=== PATIENT | female | born 1985 | race Caucasian/White ===

== ENCOUNTER 2020-10-08 16:35 | Inpatient (IN) | payer OTHER, SELFPAY ==
--- NOTE | 2020-10-08 | ECG_ITS ---
Test Reason : COUGH Blood Pressure : / mmHG Vent. Rate : 098 BPM Atrial Rate : 098 BPM P-R Int : 142 ms QRS Dur : 066 ms QT Int : 418 ms P-R-T Axes : 081 080 030 degrees QTc Int : 533 ms Normal sinus rhythm Biatrial enlargement Septal infarct , age undetermined ST & T wave abnormality, consider inferior ischemia ST & T wave abnormality, consider anterolateral ischemia Prolonged QT Abnormal ECG No previous ECGs available Referred By: Generic ED Physician Electronically Signed By:CARTER EDMONDS
--- NOTE | ~2020-10-08 | XR_ITS ---
EXAMINATION: XR CHEST CLINICAL INFORMATION: Shortness of breath COMPARISON: None TECHNIQUE: Frontal view of the chest was obtained. FINDINGS: The cardiomediastinal silhouette is normal. There is left lower lobe atelectasis/volume loss. No pleural effusions. XR/XR chest 1V IMPRESSION: Left lower lobe atelectasis.
--- NOTE | ~2020-10-08 | CT_ITS ---
EXAMINATION: CT CHEST WITHOUT CONTRAST CLINICAL INFORMATION: Rule out pneumonia. Hypoxia COMPARISON: Chest x-ray earlier the same day TECHNIQUE: Multidetector volumetric CT imaging of the chest was done. Axial MIP volume rendering provided. Sagittal and coronal reformatted images were obtained. This CT examination was performed using dose optimization techniques as appropriate, variously including the following: *Automated exposure control *Adjustment of mA and/or kV according to patient size (this includes techniques or standardized protocols for targeted exams where dose is matched to indication/reason for exam; i.e. extremities or head) *Use of iterative reconstruction technique DLP: 158 mGy-cm FINDINGS: DRILL FOREMAN: As noted on the earlier chest x-ray, there is left lower lobe consolidation with air bronchograms and volume loss. LUNGS: There is left lower lobe consolidation with air bronchograms and volume loss. The left upper lobe is clear. Right lung is clear. MEDIASTINUM: The mediastinum is normal. PLEURA: There is no pleural effusion. No pleural mass or thickening. AXILLA: No lymphadenopathy. UPPER ABDOMEN: No adrenal mass. OSSEOUS STRUCTURES: Unremarkable. CT/CT chest wo con IMPRESSION: Left lower lobe consolidation with air bronchograms and volume loss. This could represent atelectasis, aspiration, or pneumonia.
[2020-10-08 16:57] VITALS: BP 145/92; PULSE 94; RESP 16; TEMP 36.1; O2SAT 91; BMI 23.6
--- NOTE | 2020-10-08 17:04 | PC.NURSE ---
Patient placed on 2L NC
--- NOTE | 2020-10-08 17:37 | PC.NURSE ---
pt alert and oriented, skin pwd, respirations even and unlabored, pt on 2l and sating at 94%, ls diminished on the right, very hard to hear breath sounds on the right lower lobes. pt does report feeling sob and chest pain about 8/10
[2020-10-08 17:40] VITALS: PULSE 78; RESP 20; O2SAT 94
--- NOTE | 2020-10-08 17:49 | ED_ITS ---
HPI - Chest Pain General Chief Complaint: Chest Pain Stated Complaint: cough, cp Time Seen by Provider: 10/08/20 17:38 Source: patient Mode of arrival: ambulatory Limitations: no limitations History of Present Illness HPI narrative: 35-year-old female previously healthy here with complaints of productive cough since Tuesday. Went to urgent care yesterday. Diagnosed with pneumonia. Started on azithromycin, prednisone and albuterol MDI. Today feels short of breath with chest tightness. No fevers or chills. No leg swelling or pain. Patient received moderna vaccine x2 in July. She does work in a healthcare facility as a [email or web address] Related Data Home Medications Medication Instructions Recorded Confirmed azithromycin 250 mg tablet 1 tab PO DAILY 10/08/20 10/08/20 benzonatate 100 mg capsule 1 cap PO TID PRN 10/08/20 10/08/20 prednisone 50 mg tablet 1 tab PO DAILY 10/08/20 10/08/20 Allergies Allergy/AdvReac Type Severity Reaction Status Date / Time No Known Allergies Allergy Verified 10/08/20 17:48 Review of Systems Review of Systems: Yes all other systems are reviewed and are negative Constitutional: Constitutional: Reports no additional constitutional complaints, Denies body ache(s), Denies chills, Denies fever(s), Denies headache(s) and Denies weakness Eyes: Eyes: Reports no additional eye complaints and Denies change in vision ENT: Reports system reviewed and no additional complaints, except as documented, Denies dizziness, Denies headache(s), Denies nasal congestion, Mg es nasal discharge and Denies neck pain Cardiovascular: Cardiovascular: Reports no additional cardiovascular complaints, Reports chest pain, Denies leg edema and Reports dyspnea Respiratory: Respiratory: Reports no additional respiratory complaints, Reports cough and Reports dyspnea Gastrointestinal: Gastrointestinal: Reports no additional gastrointestinal complaints, Denies abdominal pain, Denies diarrhea, Denies nausea and Denies vo miting Genitourinary: Genitourinary: Reports no additional female genitourinary complaints and Denies urinary incontinence Musculoskeletal: Musculoskeletal: Reports no additional musculoskeletal complaints, Denies back pain, Denies arthralgias, Denies joint swelling, Denies neck pain, Denies numbness and Denies tingling Integumentary/Breasts: Skin/Breast: Reports system reviewed and no additional complaints, except as docu and Denies rash Neurologic: Reports system reviewed and no additional complaints, except as documented, Denies Abnormal speech present, Denies dizziness, Denies headache(s), Denies numbness, Denies tingling and Denies weakness PMFSH Past Medical History Attestation statement: The following information was validated with the patient. Source: old records reviewed and nursing notes reviewed Social History Social History Advance Directives: No Advance Directives Information Provided: No Physical Exam Vital Signs: Vital Signs: Last Vital Signs Temp 98.5 F 10/08/20 20:14 Pulse 74 10/08/20 20:14 Resp 19 10/08/20 20:14 BP 140/88 H 10/08/20 20:14 Pulse Ox 98 10/08/20 20:14 Body Mass Index 23.6 91% RA Const: General: cooperative, healthy appearing, comfortable and no acute distress Orientation/consciousness: patient oriented x3 Limitations: no limitations HENMT: Head: Yes normal to inspection Ears: hearing grossly normal bila terally General nose exam: Normal external nose present Face and sinus: Yes normal facial exam Mouth: Normal oral and palatal mucosa present Throat: Yes posterior oropharynx normal Eyes: General: appearance normal, both eyes and all related structures Pupils: Equal, round and reactive pupils present Neck: Neck: Yes normal visual inspection Chest: Chest palpation & inspection: normal inspection of the chest Resp: Other: Coarse breath sounds bilaterally Effort & Inspection: normal respiratory effort Cardio: Rate: regular rate Rhythm: regular rhythm Peripheral pulses: Peripheral pulses 2+ throughout GI: Inspection: Yes normal to inspection Palpation (GI): Soft to palpation and nontender Auscultation: normal bowel sounds Back/Spine/Pelvis: Thoracic/Lumbar Spine: thoracic and lumbar spine normal to inspection Skin: General skin exam: no rashes or lesions noted Neuro: General: patient oriented x3, no focal motor deficits and normal sensation to monofilament Cranial nerves: Yes Equal, round and reactive pupils present Cognition (Neuro): normal cognition Speech: No Abnormal speech present Gait exam (Neuro): Normal gait present Motor exam (neuro): 5/5 motor strength present throughout Extrem: General: Yes normal to inspection, Yes no pedal edema and Yes no calf tenderness Course Course Course Narrative: 35-year-old female here with complaints of cough for several days now with chest pain and shortness of breath today. Started antibiotic and prednisone yesterday for presumed pneumonia after being seen in urgent care. Now feels more short of breath with chest tightness. On arrival room air saturation 91%. Improved on 2 L to 94%. Coarse breath sounds throughout. Will check chest x-ray, EKG, labs, COVID screen. 1899-COVID screen negative. Labs show mild leukocytosis but no shift and otherwise are unremarkable. EKG shows no ischemic changes. Chest x-ray shows some left lower lobe atelectasis but no clear pneumonia. D-dimer negative. Patient will need a CT of the chest to rule out underlying PNA. 1953-CT chest consistent with left lower lobe pneumonia. Will perform ambulatory oxygen saturation for disposition. 2014-unfortunately the patient desaturated to 86% while ambulating and she was quite tachypneic. At this time infection is suspected. Blood cultures and lactic acid ordered. Antibiotics ordered. Discussed with Dr. Arriaga who accepted admission of patient. MDM - Chest Pain MDM Narrative Medical decision making narrative: Pneumonia, PE Medical Records Data Attestation: I reviewed the patient's medical records. Lab Data Attestation: I reviewed the patient's lab results. Result diagrams: 10/08/20 18:10 10/08/20 18:10 Labs: Lab Results 10/08/20 10/08/20 10/08/20 Range/Units 17:55 18:10 18:10 WBC 14.0 H (4.8-10.8) X10*3/uL RBC 5.04 (4.20-5.50) X10*6/uL Hgb 16.5 H (12.0-16.0) g/dl Hct 46.9 (37-47) % MCV 93.1 (80-98) fL MCH 32.7 (27.0-33.0) pg MCHC 35.2 H (31.0-35.0) g/dl RDW 12.2 (11.0-16.0) % Plt Count 234 (160-400) X10*3/uL MPV 11.0 (9.4-12.3) fL Immature Gran % (Auto) 0.4 (0.0-0.4) % Neut % (Auto) 86.4 H (45-73) % Lymph % (Auto) 9.1 L (20-40) % [place] % (Auto) 3.8 (2-11) % Eos % (Auto) 0.0 (0-4) % Baso % (Auto) 0.3 (0-2) % Lymph # (Auto) 1.3 (1.2-4.9) X10*3/uL [place] # (Auto) 0.5 (0.1-1.2) X10*3/uL Eos # (Auto) 0.0 (0.0-0.4) X10*3/uL Baso # (Auto) 0.0 (0.0-0.2) X10*3/uL Abs Immat Gran (auto) 0.05 H (0.00-0.03) X10*3/uL Absolute Neuts (auto) 12.1 H (2.0-8.3) X10*3/uL Absolute Nucleated RBC 0.000 (0.0-0.012) X10*3/uL Nucleated RBC % (auto) 0.0 (0.0-0.2) /100WBC PT (9.9-13.0) SEC INR (0.9-1.1) D-Dimer NG/ML Sodium 142 (135-145) mmol/L Potassium 4.1 (3.3-5.1) mmol/L Chloride 106 (96-108) mmol/L Carbon Dioxide 26 (22-29) mmol/L Anion Gap 14 (12-20) BUN 9 (9-16) mg/dL Creatinine 0.72 (0.5-1.4) mg/dL Estim Creat Clear Calc 82.3 Estimated GFR > 60 Random Glucose 157 H (60-115) mg/dL Calcium 10.4 H (8.4-10.2) mg/dL Total Bilirubin 0.5 (0.0-1.0) mg/dL Direct Bilirubin 0.2 (0.0-0.5) mg/dL AST 13 (5-31) U/L ALT 18 (0-31) U/L Alkaline Phosphatase 89 (39-117) U/L Total Protein 8.6 H (6.5-8.0) g/dL Albumin 4.6 (3.5-5.0) g/dL COVID-19 (LOU) Negative (Negative) COVID-19 Clin Com See Note 10/08/20 Range/Units 18:10 WBC (4.8-10.8) X10*3/uL RBC (4.20-5.50) X10*6/uL Hgb (12.0-16.0) g/dl Hct (37-47) % MCV (80-98) fL MCH (27.0-33.0) pg MCHC (31.0-35.0) g/dl RDW (11.0-16.0) % Plt Count (160-400) X10*3/uL MPV (9.4-12.3) fL Immature Gran % (Auto) (0.0-0.4) % Neut % (Auto) (45-73) % Lymph % (Auto) (20-40) % [place] % (Auto) (2-11) % Eos % (Auto) (0-4) % Baso % (Auto) (0-2) % Lymph # (Auto) (1.2-4.9) X10*3/uL [place] # (Auto) (0.1-1.2) X10*3/uL Eos # (Auto) (0.0-0.4) X10*3/uL Baso # (Auto) (0.0-0.2) X10*3/uL Abs Immat Gran (auto) (0.00-0.03) X10*3/uL Absolute Neuts (auto) (2.0-8.3) X10*3/uL Absolute Nucleated RBC (0.0-0.012) X10*3/uL Nucleated RBC % (auto) (0.0-0.2) /100WBC PT 11.8 (9.9-13.0) SEC INR 1.0 (0.9-1.1) D-Dimer < 200 NG/ML Sodium (135-145) mmol/L Potassium (3.3-5.1) mmol/L Chloride (96-108) mmol/L Carbon Dioxide (22-29) mmol/L Anion Gap (12-20) BUN (9-16) mg/dL Creatinine (0.5-1.4) mg/dL Estim Creat Clear Calc Estimated GFR Random Glucose (60-115) mg/dL Calcium (8.4-10.2) mg/dL Total Bilirubin (0.0-1.0) mg/dL Direct Bilirubin (0.0-0.5) mg/dL AST (5-31) U/L ALT (0-31) U/L Alkaline Phosphatase (39-117) U/L Total Protein (6.5-8.0) g/dL Albumin (3.5-5.0) g/dL COVID-19 (LOU) (Negative) COVID-19 Clin Com Imaging Data Chest x-ray: Attestation: I personally reviewed and interpreted this imaging study as follows: Radiologist's impression: EXAMINATION: XR CHEST CLINICAL INFORMATION: Shortness of breath COMPARISON: None TECHNIQUE: Frontal view of the chest was obtained. FINDINGS: The cardiomediastinal silhouette is normal. There is left lower lobe atelectasis/volume loss. No pleural effusions. XR/XR chest 1V IMPRESSION: Left lower lobe atelectasis. ? CT scan - chest: Attestation: I personally reviewed and interpreted this imaging study as follows: Radiologist's impression: [place] [id number] CT Scan Report Signed Patient: Angie Guy MR#: [id number] : 1985 Acct:[id number] Age/Sex: 35 / F ADM Date: 10/08/20 Loc: .ED Attending Dr: Ordering Physician: Deepika Lee NP Date of Service: 10/08/20 Procedure(s): CT chest con Accession Number(s): [id number] cc: Deepika Lee NP~ EXAMINATION: CT CHEST WITHOUT CONTRAST CLINICAL INFORMATION: Rule out pneumonia. Hypoxia? COMPARISON: Chest x-ray earlier the same day? TECHNIQUE: Multidetector volumetric CT imaging of the chest was done. Axial MIP volume rendering provided. Sagittal and coronal reformatted images were obtained.? This CT examination was performed using dose optimization techniques as appropriate, variously including the following: *Automated exposure control *Adjustment of mA and/or kV according to patient size (this includes techniques or standardized protocols for targeted exams where dose is matched to indication/reason for exam; i.e. extremities or head) *Use of iterative reconstruction technique DLP: 158 mGy-cm FINDINGS: PERCUSSION INSTRUCTOR: As noted on the earlier chest x-ray, there is left lower lobe consolidation with air bronchograms and volume loss. LUNGS: There is left lower lobe consolidation with air bronchograms and volume loss. The left upper lobe is clear. Right lung is clear.? MEDIASTINUM: The mediastinum is normal.? PLEURA: There is no pleural effusion. No pleural mass or thickening.? AXILLA: No lymphadenopathy.? UPPER ABDOMEN: No adrenal mass.? OSSEOUS STRUCTURES: Unremarkable.? CT/CT chest wo con IMPRESSION: Left lower lobe consolidation with air bronchograms and volume loss. This could represent atelectasis, aspiration, or pneumonia. ? ECG Data ECG #1: Attestation: I personally reviewed and interpreted this ECG as follows: ECG interpretation date: 10/08/20 ECG interpretation time: 16:49 Interpretation: Normal sinus rhythm with a rate of 98, normal NV, normal QRS, QTC [address] changes Discharge Plan Discharge Clinical Impression: Pneumonia, Hypoxia Patient Disposition: Admitted As Inpatient
[2020-10-08 18:17] LABS: MANUAL DIFF FLAG NO
[2020-10-08 18:18] LABS: COVID-19 Test Negative (Negative)
[2020-10-08 18:19] LABS: Basophils Percent Auto 0.3 % (0-2); Hematocrit 46.9 % (37-47); Hemoglobin 16.5 g/dl (12.0-16.0); Imm Gran Abs Auto 0.05 X10*3/uL (0.00-0.03); Imm Gran Pct Auto 0.4 % (0.0-0.4); Lymphocytes Absolute Auto 1.3 X10*3/uL (1.2-4.9); Lymphocytes Percent Auto 9.1 % (20-40); Mean Corpuscular HGB Conc 35.2 g/dl (31.0-35.0); Mean Corpuscular Hemoglobin 32.7 pg (27.0-33.0); Mean Corpuscular Volume 93.1 fL (80-98); Monocytes Absolute Auto 0.5 X10*3/uL (0.1-1.2); Monocytes Percent Auto 3.8 % (2-11); Neutrophils Absolute Auto 12.1 X10*3/uL (2.0-8.3); Neutrophils Percent Auto 86.4 % (45-73); Platelet Count 234 X10*3/uL (160-400); Red Blood Count 5.04 X10*6/uL (4.20-5.50); Red Cell Distribution Width 12.2 % (11.0-16.0)
[2020-10-08 18:25] LABS: Prothrombin Time 11.8 SEC (9.9-13.0)
[2020-10-08 18:33] VITALS: O2SAT 96
[2020-10-08 18:36] LABS: Alanine Aminotransferase 18 U/L (0-31); Albumin Level 4.6 g/dL (3.5-5.0); Alkaline Phosphatase 89 U/L (39-117); Anion Gap 14 (12-20); Aspartate Amino Transferase 13 U/L (5-31); Bilirubin Direct 0.2 mg/dL (0.0-0.5); Bilirubin Total 0.5 mg/dL (0.0-1.0); Blood Urea Nitrogen 9 mg/dL (9-16); Calcium 10.4 mg/dL (8.4-10.2); Carbon Dioxide 26 mmol/L (22-29); Chloride 106 mmol/L (96-108); Creatinine Clr Calc Pharmacy 82.3; Estimated Glomerular Filt Rate > 60; Glucose Random 157 mg/dL (60-115); Potassium 4.1 mmol/L (3.3-5.1); Sodium 142 mmol/L (135-145); Total Protein 8.6 g/dL (6.5-8.0)
[2020-10-08 19:07] LABS: D Dimer < 200 NG/ML
[2020-10-08 20:14] VITALS: BP 140/88; PULSE 74; RESP 19; TEMP 36.9; O2SAT 98
--- NOTE | 2020-10-08 20:22 | PHA.MEDREC ---
Pharmacy Consult ? Medication Reconciliation Pharmacy has completed the medication reconciliation. Spoke with patient in ED.
--- NOTE | 2020-10-08 20:41 | PM.IMHP ---
History of Present Illness Date of Service: 10/08/20 Chief Complaint: Shortness of breath and cough 35-year-old female with a past medical history of tobacco dependence presented to the hospital with a chief complaint of cough and shortness of breath over the past 3-4 days. Patient mentions that she also has sputum production; subjective fevers. Complains of posttussive chest discomfort. Denies any nausea vomiting diarrhea. Denies any recent travel sick contacts. Patient reports that she did receive COVID-19 vaccination. Denies any numbness tingling or focal weakness. Denies any urinary symptoms. Review of all other systems is negative except mentioned above ER course: Per ER team patient reported that she went to the urgent care and was given azithromycin and prednisone; but her symptoms continued to worsen hence presented to the ER for evaluation. Noted to have coarse breath sounds and the chest x-ray showed possible atelectasis; D-dimer was negative patient was noted to be hypoxic to 86% on room air; placed on 2 L of nasal cannula improved to 94 95%. Not in respiratory distress. Is CT chest showed left lower lobe pneumonia. Given antibiotics. Admitted to the hospital for further management PMFSH Social History Advance Directives: No Advance Directives Information Provided: No Meds Allergies Allergy/AdvReac Type Severity Reaction Status Date / Time No Known Allergies Allergy Verified 10/08/20 17:48 Active Medications: Current Medications Generic Name Dose Route Start Last Admin Trade Name Freq PRN Reason Stop Dose Admin Acetaminophen 650 mg 10/08/20 20:14 Acetaminophen 325 Mg Tablet PO Q6H PRN Pain, Mild (Pain Scale 1-3) Albuterol/Ipratropium 3 ml 10/08/20 20:39 Albuterol/Iprat 2.5/0.5mg 3 Ml Ampul.Neb INHALE RQ4H PRN Shortness of Breath/Wheezing Benzonatate 100 mg 10/08/20 20:39 Benzonatate 100 Mg Capsule PO TID PRN Cough Azithromycin 500 mg/ Sodium 250 mls @ 125 mls/hr 10/08/20 20:01 Chloride IV 10/08/20 22:00 ONCE ONE Ceftriaxone Sodium 1 gm/ 50 mls @ 100 mls/hr 10/09/20 21:00 Sodium Chloride IV Q24H JAYESH Azithromycin 500 mg/ Sodium 250 mls @ 125 mls/hr 10/09/20 22:00 Chloride IV Q24H JAYESH Dextrose/Sodium Chloride 1,000 mls @ 100 mls/hr 10/08/20 20:15 D5ns IVCONT .Q10H [facility] Magnesium Hydroxide 30 ml 10/08/20 20:14 Milk Of Magnesia 30 Ml Oral.Susp PO DAILY PRN Constipation Melatonin 6 mg 10/08/20 20:14 Melatonin 3 Mg Tablet PO BEDTIME PRN Insomnia Pharmacy Consult 1 each 10/08/20 20:01 Consult Rx Perform Med Rec MISCELLANE ONCE PRN Consult order Sodium Chloride 3 ml 10/09/20 00:00 0.9 % Sodium Chloride Flush 3 Ml Syringe IVFLUSH QSHIFT [facility] Home Medications Medication Instructions Recorded Confirmed Last Taken Type azithromycin 250 mg tablet 1 tab PO DAILY 10/08/20 10/08/20 10/07/20 History benzonatate 100 mg capsule 1 cap PO TID PRN 10/08/20 10/08/20 10/08/20 History prednisone 50 mg tablet 1 tab PO DAILY 10/08/20 10/08/20 10/08/20 History Physical Exam Vital Signs and Narrative: Vital Signs: Last Vital Signs Temp 97 F 10/08/20 16:57 Pulse 78 10/08/20 17:40 Resp 20 10/08/20 17:40 BP 145/92 H 10/08/20 16:57 Pulse Ox 96 10/08/20 18:33 Body Mass Index 23.6 Gen: Appears be in no acute distress HEENT: NCAT, Moist mucosa. Pulmonary: Course breath sounds, fair air entry CVS: Normal S1-S2 Abdomen: BS+, Soft, Nontender Extremities: Warm well perfused Neuro: Alert and awake. Results Labs CBC and Chem 7: 10/08/20 18:10 10/08/20 18:10 Labs: Laboratory Results - last 24 hr 10/08/20 10/08/20 10/08/20 17:55 18:10 18:10 MCV 93.1 MCH 32.7 MCHC 35.2 H RDW 12.2 Plt Count 234 MPV 11.0 Immature Gran % (Auto) 0.4 Neut % (Auto) 86.4 H Lymph % (Auto) 9.1 L [place] % (Auto) 3.8 Eos % (Auto) 0.0 Baso % (Auto) 0.3 Lymph # (Auto) 1.3 [place] # (Auto) 0.5 Eos # (Auto) 0.0 Baso # (Auto) 0.0 Abs Immat Gran (auto) 0.05 H Absolute Neuts (auto) 12.1 H Absolute Nucleated RBC 0.000 Nucleated RBC % (auto) 0.0 PT INR D-Dimer Anion Gap 14 Estim Creat Clear Calc 82.3 Estimated GFR > 60 Random Glucose 157 H Calcium 10.4 H Total Bilirubin 0.5 Direct Bilirubin 0.2 AST 13 ALT 18 Alkaline Phosphatase 89 Total Protein 8.6 H Albumin 4.6 COVID-19 (LOU) Negative COVID-19 Clin Com See Note 10/08/20 18:10 MCV MCH MCHC RDW Plt Count MPV Immature Gran % (Auto) Neut % (Auto) Lymph % (Auto) [place] % (Auto) Eos % (Auto) Baso % (Auto) Lymph # (Auto) [place] # (Auto) Eos # (Auto) Baso # (Auto) Abs Immat Gran (auto) Absolute Neuts (auto) Absolute Nucleated RBC Nucleated RBC % (auto) PT 11.8 INR 1.0 D-Dimer < 200 Anion Gap Estim Creat Clear Calc Estimated GFR Random Glucose Calcium Total Bilirubin Direct Bilirubin AST ALT Alkaline Phosphatase Total Protein Albumin COVID-19 (LOU) COVID-19 Clin Com Imaging Radiologist's Impressions: Impressions Chest X-Ray 10/08/20 17:48 IMPRESSION: Left lower lobe atelectasis. Chest CT 10/08/20 19:11 IMPRESSION: Left lower lobe consolidation with air bronchograms and volume loss. This could represent atelectasis, aspiration, or pneumonia. Assessment and Plan (1) Pneumonia: Status: Acute (2) Hypoxia: Status: Acute 35-year-old female with a past medical history of tobacco dependence presented to the hospital with a chief complaint of cough, shortness of breath, sputum production; noted to have pneumonia. Admitted for further management. left lower lobe pneumonia: Continue ceftriaxone azithromycin. Follow up cultures. Hypoxia: Likely in the setting of pneumonia. Coarse breath sounds. DuoNebs p.r.n.. Supplemental oxygen p.r.n.. D-dimer negative. Tobacco dependence: Counseled on smoking cessation. DVT prophylaxis: SCD boots Code status: Full code Quality Stroke Does the patient have a stroke diagnosis?: No VTE Prior VTE?: No VTE Risk Level:: Medical - moderate - high VTE Device Contraindication: N/A - Device Ordered VTE Drug Contraindication: Treatment Not Indicated
--- NOTE | 2020-10-08 21:05 | PC.NURSE ---
iv inserted, labs drawn
[2020-10-08] MEDS: cefTRIAXone sodium 1 GM in 0.9 % Sodium Chloride 50 ML IV (21:12)
[2020-10-08] MEDS: Acetaminophen 325 MG TABLET 650 MG PO (21:34)
[2020-10-08] MEDS: Azithromycin 500 MG in 0.9 % Sodium Chloride 250 ML 125 MG IV (21:38)
--- NOTE | 2020-10-08 21:47 | PC.NURSE ---
report called to the floor
--- NOTE | 2020-10-08 21:56 | MHC.CM.PN ---
CM met with admitted patient, bed assigned 359. No covid vaccine. Covid negative. No PCP. Given contact sheet for [facility] primary care. Encouraged pt to make an appointment to F/U after discharge. Pt smoker. Encouraged to use this time in hospital to quit. Enc. pt to ask for nicotine patch, as it may help. Pt lives with Atiya Sandoval ([phone]). Has 13 year old son. Uses no DME and has no services. Provided HCP education, but pt refused at this time. Pt aware that she will meet with CM tomorrow and can consider completing HCP while hospitalized. D/C plan is home without services. Transportation provided by family. CM to follow for d/c needs
[2020-10-08 22:05] VITALS: BP 137/95; PULSE 98; RESP 16; TEMP 36.2; O2SAT 94
[2020-10-08 23:40] VITALS: BP 127/75; PULSE 88; RESP 15; TEMP 36.2; O2SAT 97
[2020-10-09] MEDS: Dextrose 5 % and 0.9 % NaCl 1,000 ML 100 ML IVCONT ×2 (00:47→12:03)
[2020-10-09 03:15] VITALS: BP 120/77; PULSE 73; RESP 17; TEMP 36.4; O2SAT 95
[2020-10-09 06:25] LABS: Basophils Percent Auto 0.2 % (0-2); Eosinophils Percent Auto 0.1 % (0-4); Hematocrit 41.4 % (37-47); Hemoglobin 14.1 g/dl (12.0-16.0); Imm Gran Abs Auto 0.11 X10*3/uL (0.00-0.03); Imm Gran Pct Auto 0.5 % (0.0-0.4); Lymphocytes Absolute Auto 2.4 X10*3/uL (1.2-4.9); Lymphocytes Percent Auto 11.4 % (20-40); MANUAL DIFF FLAG SCAN; Mean Corpuscular HGB Conc 34.1 g/dl (31.0-35.0); Mean Corpuscular Volume 93.9 fL (80-98); Mean Platelet Volume 11.1 fL (9.4-12.3); Monocytes Absolute Auto 2.3 X10*3/uL (0.1-1.2); Monocytes Percent Auto 10.6 % (2-11); Neutrophils Absolute Auto 16.5 X10*3/uL (2.0-8.3); Neutrophils Percent Auto 77.2 % (45-73); Platelet Count 210 X10*3/uL (160-400); Red Blood Count 4.41 X10*6/uL (4.20-5.50); Red Cell Distribution Width 12.3 % (11.0-16.0); SCAN SMEAR FLAG 1; White Blood Count 21.4 X10*3/uL (4.8-10.8)
[2020-10-09 06:55] LABS: Anion Gap 12 (12-20); Blood Urea Nitrogen 7 mg/dL (9-16); Calcium 8.9 mg/dL (8.4-10.2); Carbon Dioxide 25 mmol/L (22-29); Chloride 108 mmol/L (96-108); Estimated Glomerular Filt Rate > 60; Glucose Random 116 mg/dL (60-115); Potassium 3.8 mmol/L (3.3-5.1); Sodium 141 mmol/L (135-145)
[2020-10-09 07:04] VITALS: BP 129/84; PULSE 76; RESP 18; TEMP 36; O2SAT 95
[2020-10-09 07:18] LABS: SLIDE REVIEW VERIFIED
[2020-10-09] MEDS: Benzonatate 100 MG CAPSULE PO ×2 (08:21→20:54)
[2020-10-09] MEDS: Acetaminophen 325 MG TABLET 650 MG PO (08:21)
--- NOTE | 2020-10-09 10:09 | HO.PM.IMPN ---
Subjective Subjective Date of Service: 10/09/20 Interval History: f/u on CAP, feels the same Review of Systems Gen: no fever Resp: no sob, no cough CV: no chest, no REAL, no leg edema GI: No n/v, no abd pain Neuro: No confusion Physical Exam Vital Signs: Vital Signs: Last Vital Signs Temp 96.8 F 10/09/20 07:04 Pulse 76 10/09/20 07:04 Resp 18 10/09/20 07:04 BP 129/84 10/09/20 07:04 Pulse Ox 95 10/09/20 07:04 Body Mass Index 23.6 General: AO X 3, no acute distress Resp: CTA bilateral CVS: S1,S2,RRR GI: +BS, NT, no distention Skin: No rash Neuro: motor grossly intact Psych: appropriate affect Objective Data Current Medications Generic Name Dose Route Start Last Admin Trade Name Freq PRN Reason Stop Dose Admin Acetaminophen 650 mg 10/08/20 20:14 10/09/20 08:21 Acetaminophen 325 Mg Tablet PO 650 mg Q6H PRN Administration Pain, Mild (Pain Scale 1-3) Albuterol/Ipratropium 3 ml 10/08/20 20:39 Albuterol/Iprat 2.5/0.5mg 3 Ml Ampul.Neb INHALE Q4H PRN Shortness of Breath/Wheezing Benzonatate 100 mg 10/08/20 20:39 10/09/20 08:21 Benzonatate 100 Mg Capsule PO 100 mg TID PRN Administration Cough Ceftriaxone Sodium 1 gm/ 50 mls @ 100 mls/hr 10/09/20 21:00 Sodium Chloride IV Q24H JAYESH Azithromycin 500 mg/ Sodium 250 mls @ 125 mls/hr 10/09/20 22:00 Chloride IV Q24H JAYESH Dextrose/Sodium Chloride 1,000 mls @ 100 mls/hr 10/08/20 20:15 10/09/20 08:09 D5ns IVCONT Not Given .Q10H JAYESH Magnesium Hydroxide 30 ml 10/08/20 20:14 Milk Of Magnesia 30 Ml Oral.Susp PO DAILY PRN Constipation Melatonin 6 mg 10/08/20 20:14 Melatonin 3 Mg Tablet PO BEDTIME PRN Insomnia Pharmacy Consult 1 each 10/08/20 20:01 Consult Rx Perform Med Rec MISCELLANE ONCE PRN Consult order Sodium Chloride 3 ml 10/09/20 00:00 10/09/20 08:09 0.9 % Sodium Chloride Flush 3 Ml Syringe [facility]USH [facility] CBC & Chem 7: 10/09/20 05:59 10/09/20 05:59 Labs: Laboratory Results - last 24 hr 10/08/20 10/08/20 10/08/20 17:55 18:10 18:10 MCV 93.1 MCH 32.7 MCHC 35.2 H RDW 12.2 Plt Count 234 MPV 11.0 Immature Gran % (Auto) 0.4 Neut % (Auto) 86.4 H Lymph % (Auto) 9.1 L Glasscock % (Auto) 3.8 Eos % (Auto) 0.0 Baso % (Auto) 0.3 Lymph # (Auto) 1.3 Glasscock # (Auto) 0.5 Eos # (Auto) 0.0 Baso # (Auto) 0.0 Abs Immat Gran (auto) 0.05 H Absolute Neuts (auto) 12.1 H Absolute Nucleated RBC 0.000 Nucleated RBC % (auto) 0.0 Smear Tech's Comments PT INR D-Dimer Anion Gap 14 Estim Creat Clear Calc 82.3 Estimated GFR > 60 Random Glucose 157 H Lactic Acid Calcium 10.4 H Total Bilirubin 0.5 Direct Bilirubin 0.2 AST 13 ALT 18 Alkaline Phosphatase 89 Total Protein 8.6 H Albumin 4.6 COVID-19 (LOU) Negative COVID-19 Clin Com See Note 10/08/20 10/08/20 10/09/20 18:10 21:04 05:59 MCV 93.9 MCH 32.0 MCHC 34.1 RDW 12.3 Plt Count 210 MPV 11.1 Immature Gran % (Auto) 0.5 H Neut % (Auto) 77.2 H Lymph % (Auto) 11.4 L Glasscock % (Auto) 10.6 Eos % (Auto) 0.1 Baso % (Auto) 0.2 Lymph # (Auto) 2.4 Glasscock # (Auto) 2.3 H Eos # (Auto) 0.0 Baso # (Auto) 0.0 Abs Immat Gran (auto) 0.11 H Absolute Neuts (auto) 16.5 H Absolute Nucleated RBC 0.000 Nucleated RBC % (auto) 0.0 Smear Tech's Comments VERIFIED PT 11.8 INR 1.0 D-Dimer < 200 Anion Gap Estim Creat Clear Calc Estimated GFR Random Glucose Lactic Acid 2.0 Calcium Total Bilirubin Direct Bilirubin AST ALT Alkaline Phosphatase Total Protein Albumin COVID-19 (LOU) COVID-19 Clin Com 10/09/20 05:59 MCV MCH MCHC RDW Plt Count MPV Immature Gran % (Auto) Neut % (Auto) Lymph % (Auto) Glasscock % (Auto) Eos % (Auto) Baso % (Auto) Lymph # (Auto) Glasscock # (Auto) Eos # (Auto) Baso # (Auto) Abs Immat Gran (auto) Absolute Neuts (auto) Absolute Nucleated RBC Nucleated RBC % (auto) Smear Tech's Comments PT INR D-Dimer Anion Gap 12 Estim Creat Clear Calc 94.0 Estimated GFR > 60 Random Glucose 116 H Lactic Acid Calcium 8.9 D Total Bilirubin Direct Bilirubin AST ALT Alkaline Phosphatase Total Protein Albumin COVID-19 (LOU) COVID-19 Clin Com Assessment and Plan (1) Pneumonia: Status: Acute Assessment and Plan: ?35-year-old female with a past medical history of tobacco dependence presented to the hospital with a chief complaint of cough, shortness of breath, sputum production; noted to have pneumonia.? Admitted for further management. Sepsis, no severe sepsis, ?left lower lobe pneumonia. WBC going up -continue Ceftriaoxne and Azithro and monitor clinically, O2 PRN No hypoxia, lowest O2 recorded 91% on room air Tobacco dependence:? Counseled on smoking cessation. NRT DVT prophylaxis:? SCD boots Code status:? Full code Quality Stroke Does the patient have a stroke diagnosis?: No VTE Prior VTE?: No VTE Risk Level:: Medical - moderate - high VTE Device Contraindication: N/A - Device Ordered VTE Drug Contraindication: Treatment Not Indicated
[2020-10-09 10:56] VITALS: BP 121/80; PULSE 68; RESP 18; TEMP 36; O2SAT 95
[2020-10-09 11:30] LABS: Adenovirus PCR Not Detected (Not Detect.); Bordetella parapertussis PCR Not Detected (Not Detect.); Bordetella pertussis PCR Not Detected (Not Detect.); Chlamydia pneumoniae PCR Not Detected (Not Detect.); Coronavirus 229E PCR Not Detected (Not Detect.); Coronavirus HKU1 PCR Not Detected (Not Detect.); Coronavirus NL63 PCR Not Detected (Not Detect.); Coronavirus OC43 PCR Not Detected (Not Detect.); Human metapneumovirus PCR Not Detected (Not Detect.); Influenza A PCR Not Detected (Not Detect.); Influenza B PCR Not Detected (Not Detect.); Mycoplasma pneumoniae PCR Not Detected (Not Detect.); Parainfluenza 1 PCR Not Detected (Not Detect.); Parainfluenza 2 PCR Not Detected (Not Detect.); Parainfluenza 3 PCR Not Detected (Not Detect.); Parainfluenza 4 PCR Not Detected (Not Detect.); RSV PCR Not Detected (Not Detect.); SARS-CoV-2 PCR Not Detected (Not Detect.)
[2020-10-09 13:21] LABS: Rhino/Enterovirus PCR Detected (Not Detect.)
[2020-10-09 15:10] VITALS: BP 142/87; PULSE 74; RESP 19; TEMP 36.6; O2SAT 97
[2020-10-09 19:20] VITALS: BP 135/85; PULSE 78; RESP 18; TEMP 36.9; O2SAT 97
[2020-10-09] MEDS: cefTRIAXone sodium 1 GM in 0.9 % Sodium Chloride 50 ML IV (20:51)
[2020-10-09] MEDS: Azithromycin 500 MG in 0.9 % Sodium Chloride 250 ML 125 MG IV (22:28)
[2020-10-09 23:36] VITALS: BP 146/82; PULSE 74; RESP 17; TEMP 36.6; O2SAT 95
--- NOTE | 2020-10-10 02:32 | PC.NURSE ---
Pt had azithromycin running for 10 mins in L AC IV, when pt complained of left shoulder pain. IV was stopped and MD contacted. MD switched the order to PO Azithromycin and the site was changed to the Right forearm.
[2020-10-10 03:33] VITALS: BP 131/80; PULSE 68; RESP 17; TEMP 36.6; O2SAT 95
[2020-10-10] MEDS: Dextrose 5 % and 0.9 % NaCl 1,000 ML 100 ML IVCONT ×3 (03:33→23:20)
[2020-10-10 06:54] LABS: Hematocrit 38.9 % (37-47); Hemoglobin 13.4 g/dl (12.0-16.0); Mean Corpuscular HGB Conc 34.4 g/dl (31.0-35.0); Mean Corpuscular Hemoglobin 31.8 pg (27.0-33.0); Mean Corpuscular Volume 92.4 fL (80-98); Mean Platelet Volume 11.2 fL (9.4-12.3); Platelet Count 208 X10*3/uL (160-400); Red Blood Count 4.21 X10*6/uL (4.20-5.50)
[2020-10-10 07:50] VITALS: BP 125/78; PULSE 66; RESP 18; TEMP 36.6; O2SAT 96
--- NOTE | 2020-10-10 09:50 | HO.PM.IMPN ---
Subjective Subjective Date of Service: 10/10/20 Interval History: F/u on CAP, feels better, hypoxia improving Review of Systems less sob no fever coughing Physical Exam Vital Signs: Vital Signs: Last Vital Signs Temp 97.8 F 10/10/20 07:50 Pulse 66 10/10/20 07:50 Resp 18 10/10/20 07:50 BP 125/78 10/10/20 07:50 Pulse Ox 96 10/10/20 07:50 Body Mass Index 23.6 General: AO X 3, no acute distress Resp: some rhonchi CVS: S1,S2,RRR GI: +BS, NT, no distention Skin: No rash Neuro: motor grossly intact Psych: appropriate affect Objective Data Active Medications Acetaminophen (Acetaminophen 325 Mg Tablet) 650 mg PO Q6H PRN PRN Reason: Pain, Mild (Pain Scale 1-3) Last Admin: 10/09/20 08:21 Dose: 650 mg Documented by: SHAILESH Albuterol/Ipratropium (Albuterol/Iprat 2.5/0.5mg 3 Ml Ampul.Neb) 3 ml INHALE Q4H PRN PRN Reason: Shortness of Breath/Wheezing Azithromycin (Azithromycin 500 Mg Tablet) 500 mg PO Q24H [facility] Benzonatate (Benzonatate 100 Mg Capsule) 100 mg PO TID PRN PRN Reason: Cough Last Admin: 10/09/20 20:54 Dose: 100 mg Documented by: CAMPOS Ceftriaxone Sodium 1 gm/ (Sodium Chloride) 50 mls @ 100 mls/hr IV Q24H [facility] Last Infusion: 10/09/20 22:29 Dose: 0 mls/hr Documented by: CAMPOS Dextrose/Sodium Chloride (D5ns) 1,000 mls @ 100 mls/hr IVCONT .Q10H [facility] Last Admin: 10/10/20 03:33 Dose: 100 mls/hr Documented by: CAMPOS Magnesium Hydroxide (Milk Of Magnesia 30 Ml Oral.Susp) 30 ml PO DAILY PRN PRN Reason: Constipation Melatonin (Melatonin 3 Mg Tablet) 6 mg PO BEDTIME PRN PRN Reason: Insomnia Pharmacy Consult (Consult Rx Perform Med Rec) 1 each MISCELLANE ONCE PRN PRN Reason: Consult order Sodium Chloride (0.9 % Sodium Chloride Flush 3 Ml Syringe) 3 ml IVFLUSH QSHIFT [facility] Last Admin: 10/10/20 07:31 Dose: Not Given Documented by: LUCERO Non-Admin Reason: IV Running Labs CBC & Chem 7: 10/10/20 06:27 10/09/20 05:59 Labs: Laboratory Results - last 24 hr 10/09/20 10/10/20 11:20 06:27 MCV 92.4 MCH 31.8 MCHC 34.4 RDW 12.0 Plt Count 208 MPV 11.2 Absolute Nucleated RBC 0.000 Nucleated RBC % (auto) 0.0 Respiratory Panel Arceo See Note Adenovirus (Rapid PCR) Not Detected B.pert (TEM-PCR) Not Detected B.parapertussis DNA PCR Not Detected C. pneumoniae DNA (PCR) Not Detected Coronavirus OC43 (PCR) Not Detected Coronavirus HKU1 (PCR) Not Detected Coronavirus 229E (PCR) Not Detected Coronavirus NL63 (PCR) Not Detected Human Metapneumovir PCR Not Detected Influenza A (RT-PCR) Not Detected Influenza B (RT-PCR) Not Detected M. pneumoniae (PCR) Not Detected Parainfluenza 1 (PCR) Not Detected Parainfluenza 2 (PCR) Not Detected Parainfluenza 3 (PCR) Not Detected Parainfluenza 4 (PCR) Not Detected RSV (PCR) Not Detected Entero/Rhino (PCR) Detected A SARS-CoV-2 RNA (RT-PCR) Not Detected Microbiology Microbiology Results: Microbiology 10/08/20 21:04 Blood Culture - Preliminary Blood - Venous No growth after 24 hours. 10/08/20 21:04 Blood Culture - Preliminary Blood - Venous No growth after 24 hours. Assessment and Plan (1) Pneumonia: Status: Acute Assessment and Plan: ?35-year-old female with a past medical history of tobacco dependence presented to the hospital with a chief complaint of cough, shortness of breath, sputum production; noted to have pneumonia.? Admitted for further management. Sepsis resolved, ?left lower lobe pneumonia. WBC improving -continue Ceftriaoxne and Azithro D3 and monitor clinically, wean off O2 No hypoxia, lowest O2 recorded 91% on room air Tobacco dependence:? Counseled on smoking cessation. NRT DVT prophylaxis:?out of bed, amublate, xarelto Code status:? full, Quality Stroke Does the patient have a stroke diagnosis?: No VTE Prior VTE?: No VTE Risk Level:: Medical - moderate - high VTE Device Contraindication: N/A - Device Ordered VTE Drug Contraindication: Treatment Not Indicated
[2020-10-10 11:52] VITALS: BP 137/80; PULSE 65; RESP 18; TEMP 36.6; O2SAT 95
--- NOTE | 2020-10-10 14:23 | MHC.CM.PN ---
PER MD ROUNDS. PT LIKELY TO BE READY TO DC TOMORROW, TUESDAY, HOME WITH NO SERVICES
[2020-10-10 15:36] VITALS: BP 132/82; PULSE 75; RESP 18; TEMP 36.6; O2SAT 96
[2020-10-10 19:27] VITALS: BP 129/83; PULSE 75; RESP 17; TEMP 36.5; O2SAT 96
[2020-10-10] MEDS: Benzonatate 100 MG CAPSULE PO (20:48)
[2020-10-10] MEDS: Acetaminophen 325 MG TABLET 650 MG PO (20:48)
[2020-10-10] MEDS: cefTRIAXone sodium 1 GM in 0.9 % Sodium Chloride 50 ML IV (20:48)
[2020-10-10] MEDS: Azithromycin 500 MG TABLET PO (20:48)
[2020-10-10 23:11] VITALS: BP 115/74; PULSE 59; RESP 16; TEMP 36.6; O2SAT 96
[2020-10-11 03:38] VITALS: BP 106/73; PULSE 59; RESP 16; TEMP 36.3; O2SAT 95
[2020-10-11 06:52] LABS: Hematocrit 38.3 % (37-47); Mean Corpuscular HGB Conc 33.9 g/dl (31.0-35.0); Mean Corpuscular Hemoglobin 31.6 pg (27.0-33.0); Mean Corpuscular Volume 93.2 fL (80-98); Mean Platelet Volume 11.4 fL (9.4-12.3); Platelet Count 218 X10*3/uL (160-400); Red Blood Count 4.11 X10*6/uL (4.20-5.50); Red Cell Distribution Width 12.1 % (11.0-16.0); White Blood Count 9.5 X10*3/uL (4.8-10.8)
[2020-10-11 08:00] VITALS: BP 135/80; PULSE 98; RESP 18; TEMP 36; O2SAT 95
--- NOTE | 2020-10-11 10:40 | P.DS_ITS ---
DS: Providers Provider Date of Service: 10/11/20 Date of admission: 10/08/20 20:14 Primary care physician: Joan Shankar NP Admitting clinician: Jcarlos Arriaga Attending physician on discharge: [facility] DS: Transfer Hospital Acceptance Reason for Transfer: Chief Complaint: Shortness of breath and cough 35-year-old female with a past medical history of tobacco dependence presented to the hospital with a chief complaint of cough and shortness of breath over the past 3-4 days.? Patient mentions that she also has sputum production; subjective fevers.? Complains of posttussive chest discomfort.? Denies any nausea vomiting diarrhea.? Denies any recent travel sick contacts. Patient reports that she did receive COVID-19 vaccination. Denies any numbness tingling or focal weakness.? Denies any urinary symptoms. Review of all other systems is negative except mentioned above ER course: Per ER team patient reported that she went to the urgent care and was given azithromycin and prednisone; but her symptoms continued to worsen hence presented to the ER for evaluation.? Noted to have coarse breath sounds and the chest x-ray showed possible atelectasis; D-dimer was negative patient was noted to be hypoxic to 86% on room air; placed on 2 L of nasal cannula improved to 94 95%.? Not in respiratory distress.? Is CT chest showed left lower lobe pneumonia.? Given antibiotics.? Admitted to the hospital for further management Hospital Course: Patient admitted for community acquired pneumonia associated with sepsis. She was treated with IV Ceftriaxone and Azithromycin and clinical course monitor with oxygen level and WBC, which was as high as 21K and is now normal at 9.5K, she is oxygen and breathing easy and is comfortable with plan to go home with oral Abx: will precribe Ceftin for 5 more days, and to finish course of Azithromycin previously prescribed on outpatient basis. Final Diagnosis: 1. Sepsis 2. community acquired pneumonia DS: Diagnosis Discharge Diagnosis (1) Pneumonia: Status: Acute (2) Sepsis: Status: Acute DS: Summary Time Spent with Patient Time attestation: Total time spent providing and/or coordinating discharge services: Discharge coordination time: Greater than 30 minutes Quality: Stroke Does the patient have a stroke diagnosis?: No Physical Exam Vital Signs: Vital Signs: Last Vital Signs Temp 96.8 F 10/11/20 08:00 Pulse 98 10/11/20 08:00 Resp 18 10/11/20 08:00 BP 135/80 10/11/20 08:00 Pulse Ox 95 10/11/20 08:00 Body Mass Index 23.6 General: AO X 3, no acute distress Resp: CTA bilateral CVS: S1,S2,RRR GI: +BS, NT, no distention Skin: No rash Neuro: motor grossly intact Psych: appropriate affect DS: Data Data Completed and Pending Labs on day of discharge: Laboratory Results - last 24 hr 10/11/20 06:26 WBC 9.5 RBC 4.11 L Hgb 13.0 Hct 38.3 MCV 93.2 MCH 31.6 MCHC 33.9 RDW 12.1 Plt Count 218 MPV 11.4 Absolute Nucleated RBC 0.000 Nucleated RBC % (auto) 0.0 Preliminary micro results at discharge 10/08/20 21:04 Blood Culture - Preliminary Blood - Venous No growth after 48 hours. 10/08/20 21:04 Blood Culture - Preliminary Blood - Venous No growth after 48 hours. Discharge Plan Discharge Anticipated Discharge Date/Time: 10/11/20 10:36 Patient Disposition: Home, Self-Care Discharge Diagnosis: Pneumonia Referrals: Joan Shankar NP-C [Primary Care Provider] - 1 Week Discharge Medications: New cefuroxime axetil 500 mg tablet 500 mg PO BID 7 Days Qty: 10 RF: 0 Continued azithromycin 250 mg tablet 1 tab PO DAILY RF: 0 benzonatate 100 mg capsule 1 cap PO TID PRN (Reason: Cough) RF: 0 Discontinued prednisone 50 mg tablet 1 tab PO DAILY RF: 0 Discharge Orders: Discharge Order (Routine); Ordered 10/11/20 Ordered By: Tony Eagle Diet: advance to usual diet Activity on Discharge: As tolerated Stand Alone Forms: Patient Portal Discharge page Care Plan Goals: Full recovery from pneumonia Health Concerns: Pneumonia Plan of Treatment: Take Azithromycin and Ceftin as recommended and follow up with your Doctor in a week, call for appoointent Assessment: as above Patient Instructions: Pneumonia (DC)
--- NOTE | 2020-10-11 11:26 | MHC.CM.PN ---
PT DISCHARGING HOME SELF-CARE W/SCRIPT FOR ORAL ABX CEFUROXIME, FAMILY FOR TRANSPORT.
== END 2020-10-11 11:26 | disposition home or self-care (01) | DRG 720 ==
LOC: HO.ED 20:15 → HO.EDOVER 20:52 → HO.S3 20:53
PROVIDERS: Nurse Practitioner Family; Admitting Provider Hospitalist; Emergency Provider Emergency Medicine Emergency Medical Services; PCP Nurse Practitioner Family; Visit Provider Internal Medicine
DX: A41.9 Sepsis, unspecified organism (principal); J18.9 Pneumonia, unspecified organism; F17.210 Nicotine dependence, cigarettes, uncomplicated; Z71.6 Tobacco abuse counseling; Z20.822 Contact with and (suspected) exposure to COVID-19; Z79.899 Other long term (current) drug therapy
CPT/HCPCS: 36415; 71045; 71250; 80048; 80076; 83605; 85025; 85027; 85379; 85610; 87040; 87633; 87635; 93005; 96365; 96367; 99285; J0456; J0696

== ENCOUNTER → 2020-12-29 15:00 | Outpatient (REF) | payer OTHER, SELFPAY ==
--- NOTE | 2020-12-29 15:03 | CA_ITS ---
Transthoracic Echocardiogram Patient (Last, First, Middle): Angie Guy, Gender: Female Date of : 1985 Age: 35 Procedure Date: 12/29/2020 Procedure Type: Transthoracic Echocardiogram Location: OP Height: 152.4 cm Weight: 56.25 kg BSA: 1.52 m2 Heart Rate: bpm BP: 128 / 78 mmHg Store Detective: TAMMY/BHARAIT Referring MD: Ajay Haque [facility] Desktop Technician: Pankaj Pal MD Symptoms: R01.1 - Cardiac murmur, unspecified Study Quality: Good ECG Rhythm: Sinus Conclusions: - Essentially normal study Findings Left Ventricle Normal left ventricular size, thickness, and systolic function. The visually estimated ejection fraction is between 60-65%. Spectral Doppler is indicative of a normal filling pattern. Right Ventricle Normal right ventricular cavity size and systolic function. Atria Both atria are normal in size. There is no evidence of interatrial shunt. Aortic Valve Normal aortic valve structure and function. There is no aortic valve stenosis. There is no aortic valve regurgitation. Mitral Valve Normal mitral valve structure and function. There is trace mitral valve regurgitation. There is no mitral valve stenosis. Pulmonic Valve The pulmonic valve is likely normal. Tricuspid Valve Normal tricuspid valve structure. There is trace tricuspid valve regurgitation. The right ventricular systolic pressure is normal. The right ventricular systolic pressure is 16 mmHg. There is no evidence of pulmonary hypertension. Great Vessels All visible segments of the aorta are normal in size. The visualized portions of the pulmonary artery and branches are normal. Venous The inferior vena cava is normal in size and collapses greater than 50% with inspiration. Pericardium/Pleural There is no evidence of pericardial effusion. Prior Study Comparison No prior study available for comparison. Measurements 2D Linear Measurements IVSd: 0.72 0.6-0.9/0.6-1.0 cm LVIDd: 4.32 3.9-5.3/4.2-5.9 cm LVIDd Index: 2.84 2.4-3.2/2.2-3.1 cm/m2 LVIDs: 2.89 2.0-3.6 cm LVPWd: 0.73 0.7-1.1 cm Ao Root: 3.10 2.1-3.5 cm LA Diam: 3.00 2.7-3.8/3.0-4.0 cm LAIDs Index: 1.97 1.5-2.3 cm/m2 LV Mass: 116.56 67-162/88-224 g LV Mass Index: 76.69 43-95/49-115 g/m2 LVOT Diam: 2.00 3.0+(-)1.3 cm 2D Systolic Function EF 4C: 56.20 >55% EF 2C: 65.70 >55% EF BiP: 63.30 >55% Mitral Valve MV Pk E: 0.91 MV PK A: 0.45 MV Decel Time: 298.00 E/A: 2.00 E'Lateral: 16.60 E'Medial: 12.10 E/E' Med: 7.50 E/E' Lat: 5.50 PHT: 87.00 MVA PHT: 2.53 Decel Coal: 3.06 Aortic Valve AoV Pk Ferny: 1.57 AoV Mn Ferny: 1.13 AoV VTI: 0.32 AoV Pk Grad: 10.00 Aov Mn Grad: 6.00 DERECK Cont.VTI: 1.94 LVOT LVOT Pk Ferny: 1.09 LVOT Mn Ferny: 0.70 LVOT VTI: 0.20 LVOT Pk Grad: 5.00 LVOT Mn Grad: 2.00 LVOT Diam: 2.00 LVOT Area: 3.14 Diastolic Function MV Pk E: 0.91 MV Pk A: 0.45 E/A: 2.00 E'Medial: 12.10 E/E' Med: 7.50 E' Laterial: 16.60 E/E' Lat: 5.50 Right Ventricle TAPSE (mm): 2.08 TVS' Ferny: 10.80 Tricuspid Valve TR Pk Ferny: 1.78 TR Pk Grad: 13.00 RA Press: 3.00 RVSP: 16.00 Great Vessels Aorta Ao Root-2D: 3.10 2.0-3.7 cm Ao Asc: 3.10 2.1-3.4 cm Ao Arch: 1.80 Updated in Other Vendor System with Status of Final Pankaj Pal MD electronically signed on 12/29/2020 5:25:15 PM with status of Final
== END ==
LOC: HO.CARD 15:00
PROVIDERS: Visit Provider Nurse Practitioner Family
DX: R01.1 Cardiac murmur, unspecified (principal)
CPT/HCPCS: 93306

== ENCOUNTER 2022-11-30 10:53 | Outpatient (AMB) | payer OTHER, SELFPAY ==
--- NOTE | 2022-11-30 10:56 | A.OFFPC_ITS ---
Vital Signs 11/30/22 10:58 Height 5 ft 1 in Weight 110 lb BMI 20.8 BP 120/80 Blood Pressure Location Lt brachial Position Sitting Pulse 74 Pulse Source Pulse Oximeter Pulse Oximetry (%) 95 Oxygen Delivery Method Room Air Intake Visit Reasons: Annual Allergies No Known Allergies Allergy (Verified 11/30/22 10:58) Medication List - Last Reconciled 11/30/22 by BRUNA Perkins No Known Home Meds Tobacco use date assessed: 11/30/22 Dental Screening Dental Screen Date: 11/30/22 Did you have a dental visit in the last 12 months?: No Did you have a dental problem in the last 6 months where you did not have access to dental care?: No Was dental information given to patient?: No HPI Annual HPI Details Pt is here for a PE. Will order labs. Pt does not have a job trainer, will refer. test performed in office today per pt's request, it is positive. COUNTS INCLUDE 234 BEDS AT THE [facility] Social History Household Members: Significant Other and Children Housing: Apartment Do you presently have visiting nurse or other home services: No Patient Tobacco Use Status: Current someday Tobacco user Tobacco use type: Cigarette Cigarettes Per Day: 10 Years Smoked: 17 years service: No Current occupational status: employed Cognitive needs: No Hearing needs: No Vision needs: No Questionnaire Thrive Questionnaire Date Thrive assessed: 11/11/20 AUDIT C Alcohol Use Questionnaire (AUDIT-C) 1. How often do you have a drink containing alcohol?: Never 3. How often do you have six or more drinks on one occasion?: Never Total Score: 0 Score Reviewed/Action Taken: No Review of Systems Const Denies chills and Denies fever(s) Eyes Denies blurry vision ENT Denies vertigo, Denies dizziness and Denies sore throat Card Denies chest pain at rest, Denies chest pain with activity, Denies diaphoresis, Denies dyspnea and Denies dyspnea on exertion Resp Denies cough, Denies dyspnea, Denies dyspnea on exertion and Denies wheezing GI Denies abdominal pain, Denies melena, Denies hematochezia, Denies constipation, Denies diarrhea and Denies loose stools Denies hematuria Musc Denies numbness and Denies tingling Skin/Breast Denies lesions Neuro Denies vertigo, Denies dizziness, Denies numbness and Denies tingling Psych Denies anxiety, Denies depression, Denies homicidal ideation, Denies suicidal ideation and Denies other (substance abuse) Aller/Immun Denies wheezing Physical exam (Primary Care) Vital Signs: Last Vital Signs Pulse 74 11/30/22 10:58 BP 120/80 11/30/22 10:58 Pulse Ox 95 11/30/22 10:58 Oxygen Delivery Method Room Air 11/30/22 10:58 BMI result Body Mass Index 20.8 Tobacco/Smoking Status: Tobacco use Status Tobacco use date assessed 11/30/22 11/30/22 11:01 Patient Tobacco Use Status Current someday Tobacco 11/30/22 11:01 Tobacco use type Cigarette 11/30/22 10:58 Thrive Assessment: Date of Thrive Assessment Date Thrive assessed 11/11/20 11/30/22 10:58 Const General: cooperative Nutritional Appearance: well nourished Orientation/consciousness: patient oriented x3 HENMT Head: Yes normal to inspection, Yes normocephalic and Yes atraumatic Ears: TM's normal bilaterally Eyes General: appearance normal, both eyes and all related structures Alignment and Position: alignment normal and position normal Neck Neck: Yes normal visual inspection and Yes no lymphadenopathy Thyroid: Thyroid normal Resp Effort & Inspection: normal respiratory effort Auscultation: clear to auscultation bilaterally Cardio Rate: regular rate Rhythm: regular rhythm Heart sounds: S1 normal heart sound present, S2 normal heart sound present and Murmur heart sound present systolic GI Palpation (GI): Soft to palpation and nontender Auscultation: normal bowel sounds Skin Rashes: no rashes Neuro General: patient oriented x3, moves all extremities, no focal motor deficits and deep tendon reflexes 2+ bilaterally Romberg Test: Negative Psych Appearance: grossly normal Mental Status: mental status grossly normal Speech and movement: Normal speech and movement present Affect: normal affect Attitude: cooperative Thought process: Normal thought process present Thought content: Normal thought content present Insight: Good insight present (Psych) Judgement: Good judgement present (Psych) Results AMB Test Urine AMB Test Urine Positive Last Edit by PATY Yousif on 11/30/22 11:44 Assessment and Plan Assessment & Plan (1) Physical exam: Code(s): Z00.00 - Encounter for general adult medical examination without abnormal findings Plan: Labs ordered (2) Screening for cervical cancer: Code(s): Z12.4 - Encounter for screening for malignant neoplasm of cervix (3) : Code(s): Z34.90 - Encounter for supervision of normal , unspecified, unspecified trimester Plan The patient agreed to the use of a medical sales consultant for this encounter. Scribed for JOHN Shipman-BC by Sheri Werner medical sales consultant, on 11/30/2022 at 11:10 EST Orders: Orders Complete Blood Count Auto Diff Today Z00.00 - Encounter for general adult medical examination without abnormal findings Comprehensive [place]. Panel Fast Today Z00.00 - Encounter for general adult medical examination without abnormal findings TSH reflex Free T4 Today Z00.00 - Encounter for general adult medical examination without abnormal findings Lipid Panel Today Z00.00 - Encounter for general adult medical examination without abnormal findings AMB HCG Urine Test Today Z32.01 - Encounter for test, result positive HCG Quantitative Today Z34.90 - Encounter for supervision of normal , unspecified, unspecified trimester UA CC w/rflx Micro + Cult Today Z00.00 - Encounter for general adult medical examination without abnormal findings Referrals TELECOMMUNICATIONS SALES REPRESENTATIVE Referral Z12.4 - Encounter for screening for malignant neoplasm of cervix, Z34.90 - Encounter for supervision of normal , unspecified, unspecified trimester Coding Level of Care Code Est Pt Prev Care [id number]) Diagnoses Physical exam Z00.00 Screening for cervical cancer Z12.4 Z34.90
[2022-11-30 10:58] VITALS: BP 120/80; PULSE 74; O2SAT 95; BMI 20.8
== END 2022-11-30 11:54 | disposition home or self-care (01) ==
PROVIDERS: Visit Provider Nurse Practitioner Family
DX: Z00.00 Encounter for general adult medical examination without abnormal findings (principal); Z32.01 Encounter for pregnancy test, result positive
CPT/HCPCS: 81025; 99395

== ENCOUNTER 2022-12-09 13:59 | Outpatient (AMB) | payer OTHER, SELFPAY ==
[2022-12-09 14:07] VITALS: BP 110/70; BMI 20.8
--- NOTE | 2022-12-09 14:07 | MHC.OFFVIS ---
Intake Vital Signs 12/09/22 14:07 Height 5 ft 1 in Weight 110 lb BMI 20.8 BP 110/70 Intake Visit Reasons: consult/nexplanon removal Allergies No Known Allergies Allergy (Verified 12/09/22 14:07) Medication List - Last Reconciled 12/09/22 by Katt Serrano CNM etonogestrel (Nexplanon) subdermal HPI consult/nexplanon removal HPI Details Patient presents here for a consult and to discussed removing her Nexplanon. She has suspected she has been since early October. She thinks she is about 11-12 weeks she has her 2nd Nexplanon in but it has been in for over 6 years and she already knew that it was not working a long time ago she was open to and is happy about the . She is 37 years old she smokes and did smoke about a pack a day but her roommate is holding her cigarettes for her and only gives her 3 cigarettes a day. 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 She had 1 baby 15 years ago at [facility] she says the only problem she had in the was that she was postdates and she took a long time to be induced. She did have a little bit of nausea at the beginning which was what made her suspect that she might be she did not confirm for a while because she had been disappointed with negative test in the past and did not want to disappoint herself she is happy with the . She lives in [place] she went to [facility] for all of her care and delivery last time [facility] Family History (Updated 12/09/22 @ 14:11 by KENDALL Go) Mother History of breast cancer Colon cancer Social History (Updated 12/09/22 @ 14:11 by KENDALL Go) Household Members: Significant Other and Children Housing: Apartment Do you presently have visiting nurse or other home services: No Alcohol intake: current Alcohol intake frequency: a few times a week Patient Tobacco Use Status: Current someday Tobacco user Tobacco use type: Cigarette Cigarettes Per Day: 10 Years Smoked: 17 years service: No Current occupational status: employed Sexually active: Yes Sexual orientation: Straight/Heterosexual Gender identity: Female Cognitive needs: No Hearing needs: No Vision needs: No Female Reproductive History Menstrual control method: implanted Total pregnancies: 1 Full term: 1 Number of Living Children: 1 Physical Exam Vital Signs: Last Vital Signs BP 110/70 12/09/22 14:07 BMI result Body Mass Index 20.8 Const Other: Thin frame Patient points to left arm where there are 2 tiny scars from Nexplanon insertion and removal in past unable to fully palpate the Nexplanon currently (will refer to surgery for location and removal) Dental caries and swollen red gingiva noted Fundus palpable at approximately 11-12 week size consistent with patient's guess of gestational age positive heart heard Nutritional Appearance: thin Results AMB Test Urine AMB Test Urine Positive Last Edit by KENDALL Go on 12/09/22 14:15 Results Reviewed Results Reviewed: Laboratory Last Values [facility] Positive 12/09/22 14:15 Assessment & Plan Assessment & Plan (1) : Code(s): Z34.90 - Encounter for supervision of normal , unspecified, unspecified trimester (2) Elderly multigravida, currently in first trimester: Comment: Unknown LMP patient believes 11-12 weeks which is consistent with positive FHT today ultrasound for KIAN is pending. Recommend care at [facility] once KIAN established. Nexplanon removal to be pursued with surgical consult. Code(s): O09.521 - Supervision of elderly multigravida, first trimester (3) Cigarette smoker motivated to quit: Code(s): F17.210 - Nicotine dependence, cigarettes, uncomplicated (4) Dental caries: Code(s): K02.9 - Dental caries, unspecified (5) Encounter for surveillance of Nexplanon subdermal contraceptive: Comment: Patient states she has had this Nexplanon in about 6 years and knew it was not functioning, positive test unable to fully palpate Nexplanon today. Refer to surgery for assessment and removal. Code(s): Z30.46 - Encounter for surveillance of implantable subdermal contraceptive Plan Patient presents here for a consult and to discussed removing her Nexplanon. She has suspected she has been since early October. She thinks she is about 11-12 weeks she has her 2nd Nexplanon in but it has been in for over 6 years and she already knew that it was not working a long time ago she was open to and is happy about the . She is 37 years old she smokes and did smoke about a pack a day but her roommate is holding her cigarettes for her and only gives her 3 cigarettes a day. 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 She had 1 baby 15 years ago at [facility] she says the only problem she had in the was that she was postdates and she took a long time to be induced. She did have a little bit of nausea at the beginning which was what made her suspect that she might be she did not confirm for a while because she had been disappointed with negative test in the past and did not want to disappoint herself she is happy with the . She lives in [place] she went to [facility] for all of her care and delivery last time. Plan made as follows. 1-refer to general surgery for evaluation of citing of the Nexplanon and removal. Clearly it is not working and has not worked for many years 2-discussed that we do not have a birthing center here and are referring women to [facility] for delivery if we do care here but given the fact that she is over 35 and a smoker there is the possibility that she was going to need increased surveillance and evaluation during this and her needs would better be served by starting all of her care at [facility] she does have transportation. I gave her the list of practices and she may want to returned to where she received all her for care the last time. She did go to [facility] for all of her care last time 3-will send for an ultrasound for dating of this and she and I will have a visit after to review the dates of the . Thereafter she will seek all of her care at [facility]. That visit can be a tele visit 4-I sent a prescription for vitamins to her pharmacy at [facility]. She says she did not take them in the previous but I urged her to this time. 5-congratulated her on her cutting down on smoking and discussed cutting it out completely and the reasons why in the effects of smoking on the 6-I encouraged her to seek dental care where she used to go before and she used to go to [facility] and liked them so I recommend she call them up again and urged frequent brushing with a soft brush specially at the gum line because of her gingivitis and the dental caries and reinforced that it is important to receive dental care in . Tele visit after dating ultrasound. Also discussed general care and what to expect though she should receive all of her care [facility]. She is very much hoping for a girl. Orders: Orders AMB HCG Urine Test Today Z32.01 - Encounter for test, result positive US OB <= 14 weeks fetus Today F17.210 - Nicotine dependence, cigarettes, uncomplicated, K02.9 - Dental caries, unspecified, O09.521 - Supervision of elderly multigravida, first trimester, Z30.46 - Encounter for surveillance of implantable subdermal contraceptive, Z34.90 - Encounter for supervision of normal , unspecified, unspecified trimester Referrals General Surgery Referral F17.210 - Nicotine dependence, cigarettes, uncomplicated, K02.9 - Dental caries, unspecified, O09.521 - Supervision of elderly multigravida, first trimester, Z30.46 - Encounter for surveillance of implantable subdermal contraceptive, Z34.90 - Encounter for supervision of normal , unspecified, unspecified trimester Medications: New PNV,calcium [id number] acid 27 mg iron- 1 mg ( Vitamins Plus Low Iron) 1 tab PO DAILY 90 tabs 0RF Coding Level of Care Code New Pt Level 4 (05137) Diagnoses Z34.90 Elderly multigravida, currently in first trimester O09.521 Cigarette smoker motivated to quit F17.210 Dental caries K02.9 Encounter for surveillance of Nexplanon subdermal contraceptive Z30.46
== END 2022-12-09 15:06 | disposition home or self-care (01) ==
PROVIDERS: PCP Nurse Practitioner Family; Visit Provider Advanced Practice Midwife
DX: O09.521 Supervision of elderly multigravida, first trimester (principal); F17.210 Nicotine dependence, cigarettes, uncomplicated; K02.9 Dental caries, unspecified; Z30.46 Encounter for surveillance of implantable subdermal contraceptive; Z32.01 Encounter for pregnancy test, result positive
CPT/HCPCS: 99204

== ENCOUNTER → 2022-12-09 13:59 | Outpatient (BNVA) | payer OTHER, SELFPAY | PROVIDERS: PCP Nurse Practitioner Family; Visit Provider Advanced Practice Midwife | DX: Z30.46 Encounter for surveillance of implantable subdermal contraceptive (principal); O09.521 Supervision of elderly multigravida, first trimester; O99.331 Smoking (tobacco) complicating pregnancy, first trimester; F17.210 Nicotine dependence, cigarettes, uncomplicated; O99.611 Diseases of the digestive system complicating pregnancy, first trimester; K02.9 Dental caries, unspecified; Z3A.11 11 weeks gestation of pregnancy | CPT/HCPCS: 81025; 99202 ==

== ENCOUNTER 2022-12-14 12:56 | Outpatient (REF) | payer OTHER, SELFPAY ==
--- NOTE | ~2022-12-14 | US_ITS ---
EXAMINATION: US OBSTETRICAL ULTRASOUND CLINICAL INFORMATION: Unknown last menstrual period, positive test COMPARISON: None available. LMP: Unknown. Gestational age by maternal dates is unknown. Estimated date of delivery by maternal dates is unknown. TECHNIQUE: Ultrasound of the maternal pelvis is performed using transabdominal transducer. M-mode Doppler is also performed. FINDINGS: There is a single intrauterine gestational sac with visible yolk sac, embryo/fetus, and cardiac activity. There is no significant subchorionic hemorrhage or hematoma. HR: 153 beats per minute. CRL (crown rump length): 4.1 cm (11 weeks and 0 days +/- 4 days). KIAN (estimated date of delivery): 07/05/2023 +/- 4 days. MATERNAL ADNEXA: The ovaries were not identified sonographically. There is no significant maternal adnexal mass. No maternal pelvic ascites. US/US OB <= 14 weeks fetus IMPRESSION: 1. Single intrauterine gestation with ultrasound gestational age of 11 weeks +/- 4 days. 2. Estimated date of delivery is 07/05/2023 +/- 4 days. 3. Ovaries were not identified sonographically. No maternal adnexal mass or pelvic ascites.
== END 2022-12-14 12:57 | disposition home or self-care (01) ==
LOC: HO.HMGCX 12:56
PROVIDERS: Visit Provider Advanced Practice Midwife
DX: O09.521 Supervision of elderly multigravida, first trimester (principal); O99.331 Smoking (tobacco) complicating pregnancy, first trimester; F17.210 Nicotine dependence, cigarettes, uncomplicated; O26.891 Other specified pregnancy related conditions, first trimester; K02.9 Dental caries, unspecified
CPT/HCPCS: 76801